=== PATIENT | male | born 1975 | race African-American/Black ===

== ENCOUNTER → 2019-05-04 | Day surgery (SDC) | payer OTHER ==
[~2019-05-04] MED LIST: ALBUTEROL1.25 MG/3 INH; EPINEPHRINE HCL 1:1000 1ML 1 MG/ML AMP ONE; FENTANYL CITRATE/PF 100MCG/2 ML INJ ONE; GUAIFENESI100 MG/5 M PO; INHALER; LIDOCAINE HCL 2% 30 ML TUBE ONE; LIDOCAINE HCL 2% LOCAL INJ 5 ML SDV VIAL INJ ONE; LIDOCAINE HCL 4% 50 ML BTL ONE; MIDAZOLAM HCL 2 MG/2 ML VIAL ONE; OMEPRAZOLE40 MG; ONDANSETRON HCL INJ 2MG/ML 2ML 2 MG/ML VIAL ONE; PROPOFOL IV EMULSION 10 MG/ML 20 ML VIAL ONE; SEVOFLURANE INHAL SOLN 250 ML PEN BTL ONE; ZITHROMAX250 MG
--- OUTSIDE RECORDS SUMMARY | 2019-05-04 05:33 | XMS REPORT ---
Author Author [facility] Address Unknown Phone Unavailable Care Team Providers Care Production Sound Mixer Name Role Phone Unavailable Unavailable Problems This patient has no known problems. Allergies, Adverse Reactions, Alerts This patient has no known allergies or adverse reactions. Medications This patient has no known medications. Encounters Start Date/Time End Date/Time Encounter Type Admission Type Attending [facility] Facility Care Department Encounter ID 2019-03-20 16:56:00 2019-03-20 16:56:00 Emergency E [facility] [id number] 2019-03-17 17:00:00 2019-03-17 17:00:00 Emergency E [facility] [id number]
--- NOTE | 2019-05-04 07:15 | NUR ---
SPIRITUAL CARE - Pre-Surgery Assessment: Pt in bed. Pt's at bedside. Pt reported supportive attention from family and friends. Intervention: Activities Aide provided pastoral presence, hospitality, and sympathetic listening. Activities Aide acquainted pt with availability of ultrasound technician while hospitalized. Outcome: Pt expressed appreciation for visit. No need for follow up indicated at this time. [facility] Spiritual Care Department O: [phone] Pager: [phone] ([phone] number calling from)
[2019-05-04 09:20] VITALS: BP 123/78
[2019-05-04 11:17] LABS: BODY FLUID APPEARANCE SL.CLOUDY; BODY FLUID COLOR STRAW
[2019-05-04 11:21] LABS: RBC,BODY FLUID 1417 cells/uL; WBC,BODY FLUID 17 cells/uL
[2019-05-04 11:22] LABS: BODY FLUID TYPE BRONCO LAV
[2019-05-04 11:44] LABS: LYMPHOCYTES,BODY FLUID 62 %; MONO/MACROPHG,BODY FLUID 6 %; NEUTROPHILS,BODY FLUID 32 %
--- NOTE | 2019-05-04 12:14 | Operative Report ---
DATE OF PROCEDURE: SURGEON: Oswaldo Garcia MD PROCEDURE: Bronchoscopy with bronchoalveolar lavage. PREOPERATIVE DIAGNOSIS: Irritant induced bronchitis. POSTOPERATIVE DIAGNOSIS: Irritant induced bronchitis. CONSENT: Consent obtained from the patient. ANESTHESIA: MAC sedation was provided by the Anesthesia Service. PROCEDURE IN DETAIL: The patient was placed in the supine position. An LMA was placed by Anesthesia. The scope was introduced through the LMA. The upper airway appeared normal. The scope was advanced through the vocal cords. The tracheal mucosa and main davey were normal. The left tracheobronchial tree was then examined. The left upper lobe and lingula were all normal to the subsegmental level. The scope was then advanced into the left lower lobe. There were no endobronchial lesions. It was normal to the subsegmental level. Scope was repositioned into the right tracheobronchial tree. The right upper lobe was normal to the subsegmental level. The right middle lobe and right lower lobe were all normal to the subsegmental level. There were no endobronchial lesions. There was some friable mucosa in the lateral basilar subsegment of the right lower lobe. The scope was wedged into the lateral basilar subsegment of the right lower lobe. A bronchoalveolar lavage was performed. ESTIMATED BLOOD LOSS: None. COMPLICATIONS: None. Oswaldo Garcia MD LMH/MODL /[id number]
== END | disposition home or self-care (01) ==
LOC: ENDO 05:25
PROVIDERS: ATTEND Internal Medicine Critical Care Medicine
DX: J68.0 Bronchitis and pneumonitis due to chemicals, gases, fumes and vapors (principal); J21.9 Acute bronchiolitis, unspecified; J31.1 Chronic nasopharyngitis; Z01.810 Encounter for preprocedural cardiovascular examination
CPT/HCPCS: 31624; 36415; 87102; 87205; 87206; 87335; 89051; 93005; J0171; J2001; J2250; J2405; J2704; J3010; 31622